=== PATIENT | female | born 1990 | race Caucasian/White ===

== ENCOUNTER 2024-02-10 19:33 | Emergency (ER) | payer OTHER, SELFPAY ==
[2024-02-10 19:52] VITALS: BP 126/82; PULSE 63; RESP 16; TEMP 37.1; O2SAT 100; BMI 19.5
--- NOTE | 2024-02-10 20:14 | ED.GENADULT ---
HPI - General Adult General Date Seen: 02/10/24 Chief complaint: Insect Bite Stated complaint: Bee sting R arm, swelling Time Seen by Provider: 02/10/24 19:38 Source: patient, RN notes reviewed and old records reviewed Mode of arrival: ambulatory Limitations: no limitations History of Present Illness HPI narrative: Patient is a 33-year-old woman, generally healthy, who was stung by a bee yesterday on her right arm. She has developed worsening swelling and redness today, it is itchy but not painful. She has no breathing difficulties or more diffuse rash. She had a bee sting on her foot once previously which she says became very red and swollen and she was treated with an antibiotic shot and then oral antibiotics. She was concerned about needing antibiotics today. She took 1 dose of Benadryl early today but did not feel like it did anything. Related Data Home Medications ?Medication ?Instructions ?Recorded ?Confirmed No Known Home Medications 02/10/24 02/10/24 Allergies Allergy/AdvReac Type Severity Reaction Status Date / Time Sulfa (Sulfonamide Allergy Unknown Verified 02/10/24 19:54 Antibiotics) PFSH PFS Social History Smoking Status: Never smoker How often do you have a drink containing alcohol: never AUDIT-C Alcohol total score: 0 Non-prescribed substance use: denies use Exam Narrative: Exam Narrative: Vital signs reviewed In general, alert, well-appearing woman. Breathing easily. Extremities: Examination of the right arm shows the area of the sting, she has some mild erythema and induration surrounding the staying without warmth, and there is a little more faint pink area around that area of induration. These are well demarcated. No fluctuance, nontender to palpation. No lymphangitic streaking, hand is normal. Skin: Warm dry well perfused. No other rash or lesion. Const: Vital Signs, click to edit/add: Vital Signs - 24 hr 02/10/24 19:52 Temperature 98.7 F Pulse Rate [Pulse Oximeter] 63 Respiratory Rate 16 Blood Pressure [Le ft Upper Arm] 126/82 Pulse Oximetry 100 Oxygen Delivery Me thod Room Air Documenting provider has reviewed patient's vital signs: yes Course Course ED Course: Had a lengthy conversation with the patient and her . She is concerned about possible infection, have tried to reassure her that at this time there is nothing to suggest infection here. I do think this is a vigorous local reaction, there are no signs that this is related to a more systemic allergic response. I recommended treatment with antihistamines, reviewed that it is unlikely a single dose of antihistamine will resolve these symptoms, but they should gradually improve over the next few days to week. Will try a few days of prednisone as well. Ice may be helpful. If this changes, becomes painful rather than itchy, if she develops some thinned extricating or systemic symptoms such as fever, would recommend re-evaluation. Vital Signs Vital signs: Initial Vital Signs Temperature 98.7 F 02/10/24 19:52 Temperature Source Temporal Artery Scan 02/10/24 19:52 Pulse Rate 63 02/10/24 19:52 Respiratory Rate 16 02/10/24 19:52 Blood Pressure 126/82 02/10/24 19:52 Blood Pressure Mean 96 02/10/24 19:52 Blood Pressure Position Sitting 02/10/24 19:52 Pulse Oximetry 100 02/10/24 19:52 Oxygen Delivery Method Room Air 02/10/24 19:52 Vital Signs Temperature 98.7 F 02/10/24 19:52 Pulse Rate 63 02/10/24 19:52 Respiratory Rate 16 02/10/24 19:52 Blood Pressure 126/82 02/10/24 19:52 Pulse Oximetry 100 02/10/24 19:52 Oxygen Delivery Method Room Air 02/10/24 19:52 Temperature 98.7 F 02/10/24 19:52 Pulse Rate 63 02/10/24 19:52 Respiratory Rate 16 02/10/24 19:52 Blood Pressure 126/82 02/10/24 19:52 Pulse Oximetry 100 02/10/24 19:52 Oxygen Delivery Method Room Air 02/10/24 19:52 Discharge Plan Discharge Clinical Impression: Bee sting Patient Disposition: Home, Self-Care Condition: Stable Instructions: Insect Bite or Sting (ED) Additional Instructions: I would recommend taking Zyrtec or a similar nonsedating antihistamine twice a day for the next few days. Prednisone as prescribed. I anticipate he will continue to have redness and swelling over this area over the next few days, but it should gradually improve over the next week. If you developed severe pain, red streaks up the arm, fevers, return for re-evaluation. Prescriptions: No Action No Known Home Medications Stand Alone Forms: [facility] Group[facility] Info Instructions
== END 2024-02-10 20:27 | disposition home or self-care (01) ==
LOC: ED 20:10
PROVIDERS: Emergency Provider Emergency Medicine
DX: T63.441A Toxic effect of venom of bees, accidental (unintentional), initial encounter (principal)
CPT/HCPCS: 99282; 99283